=== PATIENT | male | born 1985 | race Caucasian/White ===

== ENCOUNTER → 2017-02-14 | Outpatient (CLI) | payer OTHER | END | disposition home or self-care (01) | LOC: RAD 15:32 | PROVIDERS: ATTEND Neurological Surgery | DX: M51.27 Other intervertebral disc displacement, lumbosacral region (principal) | CPT/HCPCS: 72148 ==

== ENCOUNTER 2017-07-22 18:25 | Emergency (ER) | payer OTHER ==
[~2017-07-22] VITALS: Ht 167.6 cm; Wt 67.1 kg
[2017-07-22 18:28] VITALS: BP 133/87
[2017-07-22] MEDS ORDERED: DIPH,PERTUSS(ACELL),TET VAC/PF 0.5 ML IM-VACC ONE ×2 (18:57→19:00)
[2017-07-22] MEDS ORDERED: LIDOCAINE-MPF 1%, 2ML ONE (18:58)
[2017-07-22] MEDS ORDERED: LIDOCAINE-MPF 1%, 5ML ONE (18:59)
[2017-07-22] MEDS ORDERED: PLEASE ENTER ALLERGIES MC SCH (19:00)
[2017-07-22] MEDS ORDERED: LIDOCAINE 1%, 10ML INFIL ONE (19:00)
[2017-07-22] MEDS ORDERED: BACITRACIN ZINC OINT 500U/GM, 0.9 GM ONE (20:25)
== END 2017-07-22 20:31 | disposition home or self-care (01) ==
LOC: ED 20:15
DX: S61.210A Laceration without foreign body of right index finger without damage to nail, initial encounter (principal); X58.XXXA Exposure to other specified factors, initial encounter; Y99.8 Other external cause status; Y93.89 Activity, other specified; Y92.009 Unspecified place in unspecified non-institutional (private) residence as the place of occurrence of the external cause
CPT/HCPCS: 12002; 99284